=== PATIENT | male | born 1945 | race Caucasian/White ===

== ENCOUNTER 2016-09-05 13:36 | Inpatient (IN) | payer OTHER, MEDICARE ==
[~2016-09-05] VITALS: Ht 188 cm; Wt 113.9 kg
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
--- NOTE | ~2016-09-05 | EKG ---
[address] [address] ELECTROCARDIOGRAM REPORT Name: MJ ESCOBEDO Room #: 312- ADM IN M.R.#: [id number] Admission: 09/05/16 Attend Phys: Kirby Goldman MD Discharge: Date of : 47 Report #: [id number] THIS REPORT FOR: //name// [facility] Test Date: 2016-09-05 Test Time: 17:50:45 Pat Name: MJ ESCOBEDO Department: Room: 312 P Gender: M [employer]: JOHN PAUL : 1945 Requested By: Miller Berry Order Number: [id number] MD: Simon Bella Measurements Intervals [place] Rate: 80 P: [place]: QRS: -7 QRSD: 106 T: 6 QT: 410 QTc: 473 Interpretive Statements Atrial fibrillation Abnormal R-wave progression, late transition Electronically Signed On 09-07-2016 9:48:09 CDT by Simon Bella [email or web address] <ELECTRONICALLY SIGNED> By: Simon Bella MD 09/07/16 0948 1750 1750 MD DELILAH Bell
--- NOTE | ~2016-09-05 | CNG ---
[facility] [place] [address] CYTO-NONGYN REPORT PROCEDURE Name: ELIGIO ESCOBEDO Room #: 312-P [facility] IN M.R.#: [id number] Admission: 09/05/16 Date of : 49 Discharge: 09/10/16 Report #: [id number] Path Case #: [id number] CYTOPATHOLOGY REPORT COLLECTION DATE: 09/09/2016 RECEIVED DATE: 09/09/2016 SUBMITTING PHYS: Dr. Ignacia Nugent OTHER PHYS: Dr. Kirby Berry CLINICAL HISTORY: Hydrocephalus; Dementia, tremors,progressive weakness,cognitive decline SPECIMEN(S) RECEIVED: A.Cerebrospinal fluid * * * * * * * * * * * * FINAL DIAGNOSIS: A. Cerebrospinal fluid: - No malignant cells identified. Few scattered lymphocytes are identified. No viral inclusions or parasitic organisms identified. PATHOLOGIST: Brina Miller M.D. REPORT ELECTRONICALLY SIGNED BY: Brina Miller M.D. DATE/TIME: 09/12/2016 14:21 * * * * * * * * * * * * GROSS PATHOLOGY: A. Cerebrospinal fluid: The specimen is submitted unfixed, labeled "Eligio Escobedo". Received by the Cytology Department is three mL of clear colorless fluid. One ThinPrep slide was prepared. (mm 09.09.2016) UTILIZATION MANAGEMENT RN(S): PAIGE Giraldo([facility] INITIAL CPT CODE(S): A; 67514 Professional services performed by [facility] at [facility] [address], [place] [address] Technical services performed by [facility] at [address] [place] [address], [address], [place] [address]. [facility] [address] [place] [address] CYTO-NONGYN REPORT PROCEDURE Name: ELIGIO ESCOBEDO Room #: 312-P [facility] IN M.R.#: [id number] Admission: 09/05/16 Date of : 49 Discharge: 09/10/16 Report #: [id number] Path Case #: [id number] [place] [address] PHONE: [phone] DIRECTOR: Roberto Galindo M.D. * * * END OF REPORT * * *
[~2016-09-05 13:36] MED LIST: APAP650 PO; ASA81BEC PO; DIOVAN160 MG PO; FENTANYL PA25 MCG/HR TP; HYDROCODON-ACE1 EAC5 PO; HYDROCODON-ACE1 EACH PO; HYDROCODONE-AP1 EAC6 PO; JANTOVEN7.5 MG PO; LASIX 40 MG TAB40 M1 PO; LEVOTHYROXINE0.05 MG PO; LITHIUM CARBON450 MG PO; LOTENSIN40 MG PO; NORVASC10 MG PO; POTASSIUM GLUC500 MG PO; PRAVACHOL 20 MG20 M1 PO; TAMSULOSIN HCL0.4 M1 PO; TOPROL XL100 MG PO; VOLTAREN GEL 1100 G1 TOP
[2016-09-05 14:15] VITALS: BP 129/67
[2016-09-05] MEDS ORDERED: BENAZEPRIL HCL20 MG PO (14:22)
[2016-09-05] MEDS ORDERED: XARELTO15 MG PO (14:24)
[2016-09-05] MEDS ORDERED: LOPRESSOR100 M1 PO (14:25)
[2016-09-05] MEDS ORDERED: ESKALITH CR450 MG PO (14:26)
[2016-09-05 18:38] LABS: HEMATOCRIT 30.1 % (42.0-52.0); HEMOGLOBIN 9.7 gm/dL (14.0-18.0); MCH 24.9 pg (26.0-34.0); MCV 77.8 fL (80.0-100.0); PLATELET COUNT 159 thou/uL (150-400); RBC 3.87 mil/uL (4.50-6.00); RDW 18.5 % (10.5-14.5); WBC 3.3 thou/uL (4.0-11.0)
[2016-09-05 18:47] LABS: MANUAL DIFF YES
[2016-09-05 18:56] LABS: CALCIUM 9.2 mg/dL (8.5-10.1); CREATININE 1.4 mg/dL (0.7-1.3); POTASSIUM 3.7 mmol/L (3.5-5.1); TOTAL BILIRUBIN 0.5 mg/dL (<0.1-1.0); TOTAL PROTEIN 6.5 g/dL (6.4-8.2)
[2016-09-05 19:04] LABS: ABSOLUTE NEUTROPHILS 1.9 thou/uL (1.4-8.2); PLATELET ESTIMATE NORMAL; TOTAL CELL COUNT 100
[2016-09-05 19:05] LABS: ANISOCYTOSIS 1+; HYPOCHROMASIA 1+; MICROCYTES 1+
[2016-09-05 20:00] VITALS: BP 128/86
[2016-09-06] VITALS: BP 119/80
[2016-09-06 04:00] VITALS: BP 150/78
[2016-09-06 08:25] VITALS: BP 107/58
[2016-09-06 12:19] LABS: URINE BILIRUBIN NEGATIVE (Negative); URINE BLOOD TRACE (Negative); URINE COLOR YELLOW; URINE GLUCOSE-RANDOM* NEGATIVE (Negative); URINE KETONES NEGATIVE (Negative); URINE LEUKOCYTES-REFLEX NEGATIVE (Negative); URINE PROTEIN (DIPSTICK) NEGATIVE (Negative); URINE SPECIFIC GRAVITY <= 1.005 (1.003-1.035); URINE UROBILINOGEN 0.2 E.U./dl (0.2-1.0)
[2016-09-06 16:16] VITALS: BP 104/46
[2016-09-06 20:00] VITALS: BP 126/72
[2016-09-07 04:00] VITALS: BP 135/59
[2016-09-07 05:36] LABS: CALCIUM 9.3 mg/dL (8.5-10.1); CREATININE 1.5 mg/dL (0.7-1.3); POTASSIUM 4.1 mmol/L (3.5-5.1)
[2016-09-07 07:40] VITALS: BP 103/62
[2016-09-07 17:14] VITALS: BP 122/70
[2016-09-07 20:00] VITALS: BP 113/66
[2016-09-08 03:55] VITALS: BP 112/70
[2016-09-08 08:22] VITALS: BP 124/65
[2016-09-08 16:09] VITALS: BP 114/64
[2016-09-08 19:37] VITALS: BP 122/70
[2016-09-09 03:55] VITALS: BP 130/80
[2016-09-09 06:02] LABS: CALCIUM 8.9 mg/dL (8.5-10.1); CREATININE 1.3 mg/dL (0.7-1.3); POTASSIUM 4.2 mmol/L (3.5-5.1)
[2016-09-09 08:25] LABS: INR 1.1; PROTIME 11.2 Seconds (9.3-11.4)
[2016-09-09 08:42] VITALS: BP 114/68
[2016-09-09] MEDS ORDERED: CARBIDOPA-LEVO1 EA11 PO (10:15)
[2016-09-09] MEDS ORDERED: OXCARBAZEPINE300 M1 PO (10:15)
[2016-09-09 14:55] LABS: CSF GLUCOSE 61 mg/dL (40-70); CSF PROTEIN 61 mg/dL (15-45)
[2016-09-09 15:02] LABS: CSF CLARITY CLEAR; CSF COLOR COLORLESS; CSF WBC 2 /mm3 (0-10); MANUAL DIFF NO; NUMBER OF TUBES 4; VOLUME 13 ml
[2016-09-09 15:33] VITALS: BP 102/71
[2016-09-09 20:55] VITALS: BP 138/74
[2016-09-10 03:05] VITALS: BP 131/75
[2016-09-10 09:16] VITALS: BP 124/73
[2016-09-12 16:12] LABS: CSF IgG 5.1 mg/dL (0.0-8.6); MYELIN BASIC PROTEIN 5.3 ng/mL (0.0-1.2)
== END 2016-09-10 13:50 | DRG 917 ==
LOC: 3N 13:36
PROVIDERS: Internal Medicine; Internal Medicine Geriatric Medicine; Psychiatry & Neurology Neurology
PROC: 009U3ZX Drainage of Spinal Canal, Percutaneous Approach, Diagnostic (ICD-10-PCS; principal; 2016-09-09)
PROC: B01B1ZZ Fluoroscopy of Spinal Cord using Low Osmolar Contrast (ICD-10-PCS; principal; 2016-09-09)
DX: T56.891A Toxic effect of other metals, accidental (unintentional), initial encounter (principal); G92 Toxic encephalopathy; E44.1 Mild protein-calorie malnutrition; R32 Unspecified urinary incontinence; R25.1 Tremor, unspecified; G47.33 Obstructive sleep apnea (adult) (pediatric); E03.9 Hypothyroidism, unspecified; I10 Essential (primary) hypertension; Z96.649 Presence of unspecified artificial hip joint; Z96.659 Presence of unspecified artificial knee joint; R91.1 Solitary pulmonary nodule; L92.9 Granulomatous disorder of the skin and subcutaneous tissue, unspecified; I48.0 Paroxysmal atrial fibrillation; D72.819 Decreased white blood cell count, unspecified; D64.9 Anemia, unspecified; F32.9 Major depressive disorder, single episode, unspecified; F39 Unspecified mood [affective] disorder; Z68.32 Body mass index [BMI] 32.0-32.9, adult; Z87.891 Personal history of nicotine dependence; Z79.899 Other long term (current) drug therapy
CPT/HCPCS: 10795

== ENCOUNTER → 2016-12-23 | Outpatient (CLI) | payer OTHER, MEDICARE ==
[~2016-12-23] MED LIST changes: +BENAZEPRIL HCL20 MG PO; +CARBIDOPA-LEVO1 EA11 PO; +ESKALITH CR450 MG PO; +LOPRESSOR100 M1 PO; +OXCARBAZEPINE300 M1 PO; +XARELTO15 MG PO
== END ==
LOC: RAD 08:36
DX: R13.10 Dysphagia, unspecified (principal)

== ENCOUNTER → 2017-06-30 | Outpatient (CLI) | payer OTHER, MEDICARE | LOC: CAT 10:38 | DX: J32.9 Chronic sinusitis, unspecified (principal) ==

== ENCOUNTER → 2018-11-12 | Outpatient (CLI) | payer OTHER, MEDICARE | LOC: RAD 13:33 | DX: M47.812 Spondylosis without myelopathy or radiculopathy, cervical region (principal); M48.02 Spinal stenosis, cervical region; M25.78 Osteophyte, vertebrae; G89.29 Other chronic pain ==

== ENCOUNTER → 2018-12-12 | Outpatient (CLI) | payer OTHER, MEDICARE ==
[~2018-12-12] VITALS: Ht 182.9 cm; Wt 118.4 kg
[~2018-12-12] MED LIST changes: +FLOMAX0.4 MG PO; +FLOVENT HFA12 GM INH; +IPRAT-ALBUT 0.5-3 ML INH; +MELATONIN5 M1 PO; +OCUVITE ADULT1 EAC2 PO; +OXYBUTYNIN 5 MG5 M2 PO; +POTASSIUM CITR10 ME1 PO; +SINGULAIR 10 MG10 M1 PO; +STOOL SOFTENER100 M1 PO; +SYNTHROID50 MCG PO; +TURMERIC500 M2 PO; +VITAMIN B-12500 MCG PO; +VITAMINC500 PO
--- NOTE | 2018-12-13 07:25 | EKG ---
[address] [address] ELECTROCARDIOGRAM REPORT Name: MJ ESCOBEDO Room #: REG [facility]#: [id number] Admission: 12/12/18 Attend Phys: Meek Garcia Discharge: Date of : 47 Report #: [id number] THIS REPORT FOR: //name// [facility] Test Date: 2018-12-12 Test Time: 10:34:33 Pat Name: MJ ESCOBEDO Department: Room: Gender: M Shelver: JOHN PAUL : 1945 Requested By: Julinane Cormier Order Number: [id number] MD: Barry Rosales Measurements Intervals [place] Rate: 96 P: [place]: QRS: -12 QRSD: 96 T: 0 QT: 355 QTc: 449 Interpretive Statements Atrial fibrillation Ventricular premature complex Poor R wave progression Compared to ECG 09/05/2016 17:50:45 Ventricular premature complex(es) now present Electronically Signed On 12-13-2018 7:25:30 CDT by Barry Rosales [email or web address] <ELECTRONICALLY SIGNED> By: Barry Rosales MD, [facility] 12/13/18 0725 1034 1034 Barry Rosales MD, [facility] /EPI
--- NOTE | 2018-12-14 09:07 | PATH ---
[facility] [place] [address] PATHOLOGY RPT PROCEDURE Name: ELIGIO ESCOBEDO [id number] Admission: 12/12/18 Date of : 49 Discharge: Report #: [id number] Path Case #: [id number] [facility] Accession Number: [id number] . 01 Material submitted: . PART A: duodenum - BX OF DUODENUM R/O SPRUE PART B: esophagus - BX OF DISTAL ESOPHAGUS R/O BARRETTS. Modifiers: distal PART C: stomach - BX OF GASTRITIS PART D: colon - BX OF POLYP AT SIGMOID. Modifiers: sigmoid . 01 Clinical history: . Pre-OP DX: Anemia Post-OP DX: Hiatal hernia, gastritis, diverticulosis, colon polyps, please refer to requisition for additional information . 02 Diagnosis: A. Duodenum, biopsy: - Duodenal mucosa with intact villous architecture and no increase in intraepithelial lymphocytes. . B. Esophagus, distal, biopsy: - Squamocolumnar junctional mucosa; chronically inflamed. - Negative for intestinal metaplasia. . C. Gastric, biopsy: - Mild chronic inactive gastritis. - An H. pylori immunostain is negative (C1; appropriate control). . D. Colon, sigmoid, biopsy: - Hyperplastic polyp. (MAP/db; 12/13/18) LBQ/12/13/2018 . 02 Electronically signed: . Juan Miguel Pace MD, Pathologist NPI- [id number] . 01 Gross description: . A. Received in formalin labeled "Eligio Escobedo, BX of duodenum, rule out sprue," are 4 segments of trammell soft tissue measuring 0.9 x 0.8 x 0.3 cm in aggregate dimensions and ranging from 0.3 to 0.4 cm in maximum dimension. The specimen is submitted entirely in cassette A1. . B. Received in formalin labeled "Eligio Escobedo, BX of distal esophagus, rule out Peralta's," are 2 segments of trammell soft tissue measuring 0.7 x 0.2 x 0.2 cm in aggregate dimensions and ranging from 0.3 to 0.4 cm in maximum dimension. The specimen is submitted entirely in cassette B1. [facility] [address] [place] [address] PATHOLOGY RPT PROCEDURE Name: ELIGIO ESCOBEDO Room #: REG [facility]#: [id number] Admission: 12/12/18 Date of : 49 Discharge: Report #: [id number] Path Case #: [id number] . C. Received in formalin labeled "Eligio Escobedo, BX of gastritis," are 2 segments of trammell soft tissue measuring 1.0 x 0.3 x 0.2 cm in aggregate dimensions and ranging from 0.3 to 0.7 cm in maximum dimension. The specimen is submitted entirely in cassette C1. . D. Received in formalin labeled "Eligio Escobedo, BX of polyp at sigmoid," is a single segment of trammell soft tissue measuring 0.3 cm in maximum dimension. The specimen is entirely submitted in cassette D1. (TSD; 12/12/2018) TOB/TOB . 02 Pathologist provided ICD-10: K29.50, K63.5 . 02 CPT . 565634, 245542, 394210, 073502, F09144 Specimen Comment: A courtesy copy of this report has been sent to Specimen Comment: [phone], . Specimen Comment: Report sent to / DR HANKS Performed at: [address], [place] [id number] MD Jatinder Thao MD Phone: [phone] Performed at: [address] [id number] MD Brina Miller MD Phone: [phone]
--- NOTE | 2018-12-15 12:43 | P ---
[facility] [address] PROCEDURE REPORT Name: GREGGMJ [id number] Admission: 12/12/18 Attend Phys: Meek Garcia Discharge: Date of : 49 Report #: [id number] THIS REPORT FOR: //name// CC: RHYS Berry DATE OF SERVICE: 12/12/2018 PROCEDURE PERFORMED: Colonoscopy with biopsies. HISTORY OF PRESENT ILLNESS: The patient is a 73-year-old male with a history of anemia, most recent hemoglobin in the 8 range. He does report a small amount of bright red blood per rectum at times. Denies any abdominal pain. Upper endoscopy was just performed, which showed grade A erosive esophagitis and a mild gastritis. No evidence of active bleeding. Plan is for colonoscopy next today. DESCRIPTION OF PROCEDURE: The risks and benefits of the procedure were explained to the patient. Those risks including but not limited to bleeding, perforation, the risk of sedation. He understood these risks and gave informed consent. Sedation was given using propofol per anesthesia. Next, a digital rectal exam was initially performed, which was normal. Next using a standard Olympus colonoscope, the scope was placed in the patient's anus and advanced under direct vision to the cecum. The overall prep was good. The cecum and ileocecal valve were normal in appearance. Ascending, transverse and descending colon were normal. A few scattered diverticula were noted in the sigmoid colon. No evidence of inflammation. Also noted was a 3 mm sessile polyp. This was removed with cold forceps. The rectal mucosa was normal. On retroflexion, small nonbleeding internal hemorrhoids were noted. No evidence of anal fissure or active bleeding. The scope was then withdrawn and the procedure terminated. The patient tolerated the procedure well. IMPRESSION: 1. Mild sigmoid diverticulosis. 2. Small colonic polyp. 3. Small internal hemorrhoids, likely source of bright red blood per rectum at times. RECOMMENDATIONS: 1. Await biopsy results. 2. If polyp is hyperplastic, repeat in 10 years; if adenomatous polyp, repeat in 5 years. 3. We would recommend Analpram on a p.r.n. basis. Consider M2 capsule in the future if the patient remains anemic. [address] [address] PROCEDURE REPORT Name: MJ ESCOBEDO Room #: REG [facility]#: [id number] Admission: 12/12/18 Attend Phys: Meek Garcia Discharge: Date of : 49 Report #: [id number] Thank you for allowing me to participate in his care. <ELECTRONICALLY SIGNED> By: Meek Matson MD 12/15/18 1243 1233 0355 Meek Matson MD /nt
--- NOTE | 2018-12-15 12:43 | P ---
[facility] [place] [address] PROCEDURE REPORT Name: GREGGMJ Room #: REG [facility]#: [id number] Admission: 12/12/18 Attend Phys: Meek Garcia Discharge: Date of : 49 Report #: [id number] THIS REPORT FOR: //name// CC: RHYS Berry DATE OF SERVICE: 12/12/2018 PROCEDURE PERFORMED: Upper endoscopy with biopsies. HISTORY OF PRESENT ILLNESS: The patient is a 73-year-old male with a history of anemia. He does report some small amount of bright red blood per rectum at times. Hemoglobin was in the 8 range recently with a low iron as well noted. Denies any melanotic stools in general, but he does report dark stools and brown stools at times as well. No previous history of upper endoscopy. We discussed proceeding with an EGD and a colonoscopy today. DESCRIPTION OF PROCEDURE: The risks and benefits of the procedure were explained to the patient. Those risks including but not limited to bleeding, perforation, the risk of sedation. He understood these risks and gave informed consent. Sedation was given using propofol per anesthesia. Next, using a standard Olympus upper endoscope, the scope was placed in the patient's mouth and advanced under direct vision through the esophagus, stomach and into the second portion of the duodenum. The upper and mid esophagus was normal in appearance. 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 Biopsies were obtained. Also noted was grade A erosive esophagitis. No evidence of bleeding. Upon entering the stomach, a small hiatal hernia was noted. There was a umhp-oe-xddziyli gastritis noted in the fundus and upper body. Biopsies were obtained to rule out H. pylori. No evidence of ulcerations or erosions. There was no evidence of bleeding throughout the exam today. The antrum was normal. The pylorus was normal and patent. The duodenal bulb, first and second portion were all normal. Biopsies were also obtained to rule out the possibility of celiac sprue. The scope was then withdrawn and the procedure terminated. The patient tolerated the procedure well. IMPRESSION: 1. Grade A erosive esophagitis. 2. 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 3. Hiatal hernia. 4. Gastritis. RECOMMENDATIONS: 1. Await biopsy results. 2. Recommend daily PPI therapy. 3. We will proceed with colonoscopy next today. [address] [address] PROCEDURE REPORT Name: MJ ESCOBEDO [facility] [id number] Admission: 12/12/18 Attend Phys: Meek Garcia Discharge: Date of : 49 Report #: [id number] Thank you for allowing me to participate in his care. <ELECTRONICALLY SIGNED> By: Meek Matson MD 12/15/18 1243 1214 0222 Meek Matson MD /nikia
== END | disposition home or self-care (01) ==
LOC: GI 09:45
DX: K63.5 Polyp of colon (principal); K57.30 Diverticulosis of large intestine without perforation or abscess without bleeding; K64.8 Other hemorrhoids; K20.9 Esophagitis, unspecified; K29.50 Unspecified chronic gastritis without bleeding; K44.9 Diaphragmatic hernia without obstruction or gangrene; I10 Essential (primary) hypertension; E78.5 Hyperlipidemia, unspecified; G20 Parkinson's disease; J43.9 Emphysema, unspecified; G47.33 Obstructive sleep apnea (adult) (pediatric); M19.90 Unspecified osteoarthritis, unspecified site; I48.91 Unspecified atrial fibrillation; Z79.01 Long term (current) use of anticoagulants; Z98.41 Cataract extraction status, right eye; Z96.651 Presence of right artificial knee joint; Z96.642 Presence of left artificial hip joint; Z87.891 Personal history of nicotine dependence; Z98.42 Cataract extraction status, left eye; Z79.899 Other long term (current) drug therapy
CPT/HCPCS: 62110; 62900

== ENCOUNTER → 2019-10-23 | Outpatient (CLI) | payer OTHER, MEDICARE | LOC: SJCVCIMAG 08:47 | PROVIDERS: ATTEND Internal Medicine | DX: I08.8 Other rheumatic multiple valve diseases (principal); I48.21 Permanent atrial fibrillation; I11.0 Hypertensive heart disease with heart failure; I50.32 Chronic diastolic (congestive) heart failure; R94.31 Abnormal electrocardiogram [ECG] [EKG]; E78.5 Hyperlipidemia, unspecified; G47.33 Obstructive sleep apnea (adult) (pediatric); G20 Parkinson's disease; E78.00 Pure hypercholesterolemia, unspecified; Z79.01 Long term (current) use of anticoagulants; Z79.899 Other long term (current) drug therapy; Z87.891 Personal history of nicotine dependence; Z82.49 Family history of ischemic heart disease and other diseases of the circulatory system ==

== ENCOUNTER 2020-01-23 10:06 | Inpatient (IN) | payer OTHER, MEDICARE ==
[2020-01-23] VITALS (34 sets, daily range): BP systolic 92–126; BP diastolic 44–79
[~2020-01-23] VITALS: Ht 182.9 cm; Wt 125.6 kg
--- NOTE | ~2020-01-23 | EKG ---
[facility] [place] [address] ELECTROCARDIOGRAM REPORT Name: GREGGMJ Coates Room #: 238-P ADM IN M.R.#: [id number] Admission: 01/23/20 Attend Phys: Pedro Garibay MD Discharge: Date of : 49 Report #: [id number] THIS REPORT FOR: cc: Miller Berry MD, Christopher B. MD Epiphany, Epiphany MD ~ THIS REPORT FOR: //name// [facility] Test Date: 2020-01-25 Test Time: 07:40:51 Pat Name: MJ ESCOBEDO Department: Room: 238 Gender: M Field Control Inspector: Shiela GE : 1945 Requested By: Barry Rosales Order Number: [id number] MD: Measurements Intervals [place] Rate: 125 P: [place]: QRS: 12 QRSD: 91 T: -7 QT: 338 QTc: 488 Interpretive Statements Atrial fibrillation Low voltage, precordial leads Borderline T abnormalities, inferior leads Borderline prolonged QT interval Compared to ECG 01/24/2020 07:23:43 Low QRS voltage now present T-wave abnormality now present Myocardial infarct finding no longer present [email or web address] By: 9 9 Epiphany Epiphany, /RUTHANN
--- NOTE | ~2020-01-23 | O ---
[facility] [place] [address] OPERATIVE REPORT Name: MJ ESCOBEDO Room #: 238-P ADM IN M.R.#: [id number] Admission: 01/23/20 Attend Phys: Pedro Garibay MD Discharge: Date of : 49 Report #: [id number] THIS REPORT FOR: cc: Miller Berry MD,Leon Talavera MD, MD ~ CC: Miller Garibay DATE OF SERVICE: 01/25/2020 PREOPERATIVE DIAGNOSIS: Acute cholecystitis. POSTOPERATIVE DIAGNOSES: Acute gangrenous cholecystitis with abscess. OPERATION: Diagnostic laparoscopy with drainage of hepatic abscess and placement of cholecystostomy. SURGEON: Leon Brito MD. ANESTHESIA: General. ESTIMATED BLOOD LOSS: 20 mL. SPECIMEN: None. DRAINS: A 15-Eritrean round x 2. DESCRIPTION OF PROCEDURE: After informed consent was obtained, the patient was brought to the operating room and placed supine. SCDs were placed and working, preoperative antibiotics were administered, general anesthesia was induced. The abdomen was prepped and draped in the usual sterile fashion. A 10 mm incision was made below the umbilicus. Fascia was incised and a trocar was placed. Pneumoperitoneum was established. Three right upper quadrant 5 mm ports were placed. The gallbladder was severely inflamed and necrotic. It had gangrene. The omentum was plastered to it. This was peeled away. During this dissection, the gallbladder was encountered. It was already ruptured. There was pus draining from the gallbladder. There was a hepatic abscess corresponding with the CT findings. All of this pus was then drained using a suction device. The gallbladder was gangrenous. Given the severe inflammation and the colon stuck up to the triangle of Calot and the patient's blood thinner use, I did not think it would be safe to perform a dissection or [facility] [address] [place] [address] OPERATIVE REPORT Name: GREGGMJ Room #: 238-P [facility]#: [id number] Admission: 01/23/20 Attend Phys: Pedro Garibay MD Discharge: Date of : 49 Report #: [id number] an open procedure. I therefore placed two 15-Eritrean round drains through the right upper quadrant ports. One was placed into the gallbladder fossa and one was placed around the liver to drain the rest of the infection. The ports were then removed under direct vision. The fascia at the umbilicus was closed with a eaukby-fc-jcnsg 0 Vicryl. Skin was closed with 4-0 Monocryl. Incisions were sealed with Dermabond. COMPLICATIONS: None. DISPOSITION: The patient was taken to recovery in satisfactory condition. By: 1103 1129 Leon Brito MD /nt
[2020-01-23 10:40] LABS: HEMATOCRIT 28.9 % (42.0-52.0); MCH 25.8 pg (26.0-34.0); MCV 83.2 fL (80.0-100.0); PLATELET COUNT 209 thou/uL (150-400); RBC 3.48 mil/uL (4.50-6.00); RDW 17.3 % (10.5-14.5); WBC 23.9 thou/uL (4.0-11.0)
[2020-01-23 10:46] LABS: ANION GAP 12 mmol/L (7-16); BUN 27 mg/dL (7-18); CALCIUM 8.9 mg/dL (8.5-10.1); CHLORIDE 100 mmol/L (98-107); CO2 22 mmol/L (21-32); CREATININE 2.1 mg/dL (0.7-1.3); GLUCOSE 114 mg/dL (74-106); POTASSIUM 3.5 mmol/L (3.5-5.1); SODIUM 134 mmol/L (136-145)
[2020-01-23 10:57] LABS: ALBUMIN 2.1 g/dL (3.4-5.0); SGOT 47 U/L (15-37); SGPT 27 U/L (30-65); TOTAL BILIRUBIN 4.6 mg/dL (0.2-1.0); TOTAL PROTEIN 6.6 g/dL (6.4-8.2); TROPONIN-I <0.06 ng/mL (<0.06)
[2020-01-23 11:39] LABS: ABSOLUTE NEUTROPHILS 19.8 thou/uL (1.4-8.2); ANISOCYTOSIS 1+; ATYPICAL LYMPHS 2 %
[2020-01-23 13:08] LABS: URINE BILIRUBIN 2+ (Negative); URINE BLOOD NEGATIVE (Negative); URINE CLARITY CLOUDY; URINE GLUCOSE-RANDOM* NEGATIVE (Negative); URINE KETONES TRACE (Negative); URINE LEUKOCYTES-REFLEX TRACE (Negative); URINE PROTEIN (DIPSTICK) 1+ (Negative); URINE SPECIFIC GRAVITY 1.025 (1.005-1.035)
[2020-01-23 13:09] LABS: URINE NITRITE-REFLEX POSITIVE (Negative)
[2020-01-23 13:10] LABS: URINE COLOR YELLOW
[2020-01-23 13:12] LABS: ICTOTEST (BILI CONFIRMATORY) Positive (Negative)
[2020-01-23 13:24] LABS: CRYSTALS None Seen /LPF (None Seen); FINE GRANULAR CASTS 0-3 Few /LPF (None Seen); HYALINE CASTS 0-3 Few /LPF (None Seen); SQUAMOUS None Seen /LPF (0-3)
[2020-01-23 13:25] LABS: URINE RBC None Seen /HPF (0-2); URINE WBC-REFLEX 6-15 Few /HPF (0-5)
[2020-01-23] MEDS ORDERED: CARBIDOPA-LEVO1 EAC1 PO ×2 (13:39→13:40)
[2020-01-23] MEDS ORDERED: XARELTO15 MG PO (13:43)
[2020-01-23] MEDS ORDERED: PRILOSEC OTC20 MG PO (13:43)
[2020-01-23] MEDS ORDERED: STOOL SOFTENER1 EAC2 PO (13:44)
[2020-01-23] MEDS ORDERED: VITAMIN C1000 MG PO (13:44)
[2020-01-23] MEDS ORDERED: IRON325 M1 PO (13:45)
[2020-01-23] MEDS ORDERED: ZINC50 M2 PO (13:46)
[2020-01-23] MEDS ORDERED: OCUVITE TABLET1 EAC1 PO (13:49)
[2020-01-23] MEDS ORDERED: POTASSIUM600 MG PO (13:49)
--- NOTE | 2020-01-23 13:55 | EKG ---
[facility] [place] [address] ELECTROCARDIOGRAM REPORT Name: KEI ESCOBEDOROSCOE Aminata Room #: 170-6 ADM IN M.R.#: [id number] Admission: 01/23/20 Attend Phys: Pedro Garibay MD Discharge: Date of : 49 Report #: [id number] THIS REPORT FOR: cc: Miller Berry MD, Christopher B. MD Santiago, Patrick MD [facility] ~ THIS REPORT FOR: //name// [facility] ED Test Date: 2020-01-23 Test Time: 10:15:51 Pat Name: MJ ESCOBEDO Department: Room: 170 Gender: M Booth Manager: WALTER SUNG : 1945 Requested By: Cj Hahn Order Number: [id number] MD: Paras Capellan Measurements Intervals [place] Rate: 163 P: [place]: QRS: 33 QRSD: 92 T: -6 QT: 300 QTc: 495 Interpretive Statements Atrial fibrillation with rapid V-rate Inferior infarct, old Consider anterior infarct Compared to ECG 12/12/2018 10:34:33 Ventricular premature complex(es) no longer present Poor R-wave progression no longer present Electronically Signed On 01-23-2020 13:54:56 CDT by Paras Capellan [email or web address] <ELECTRONICALLY SIGNED> By: Paras Capellan MD, [facility] 01/23/20 1354 1015 1015 Paras Capellan MD, [facility] /EPI
--- NOTE | 2020-01-23 13:56 | NUR ---
ATTEMPTED TO CALL REPORT TO ICU. UNABLE TO TAKE REPORT AND WILL CALL BACK
--- NOTE | 2020-01-23 14:31 | NUR ---
Attempted to call report to ICU nurse at this time. Unable to take report.
--- NOTE | 2020-01-23 17:41 | NUR ---
PATIENT IN ICU AT 1555, ALERT AND ORIENTED BUT FORGETFUL STATING HE HAS SHORT TERM MEMORY LOSS. ON LEVO AND TITRATING BP TOLERATES, A-FIB ON THE MONITOR WITH A CONTROLLED RATE. ADMISSION ASSESSMENT AND HISTORY DOCUMENTED IN [place]. CARE PLAN ACTIVATED AND PATIENT ORIENTED TO CALL SYSTEM AND TV REMOTE CONTROL. FALL PRECAUTIONS IN PLACE. ALL CONSULTS NOTED.
--- NOTE | 2020-01-23 20:26 | NUR ---
2023- Nurse talked with Dr. Matson and updated him on patient status and answered his questions. Nurse reviewed his cat scan and ultrasound results with the physician. Physician expressed will note his recommendations. Also expressed may consult Dr. Berry tomorrow. Nurse to continue to monitor patient status.
--- NOTE | 2020-01-23 21:43 | NUR ---
2037- Nurse talked with Dr. Brito, who expressed he is going to come see the patient.
[2020-01-24] VITALS (57 sets, daily range): BP systolic 90–138; BP diastolic 28–94
--- NOTE | 2020-01-24 06:18 | NUR ---
Patients plan is for surgery today, per Dr. Brito. Physician spoke with patient last night. The patient would like to have a video conference with his before deciding to do the surgery today. He is progressing towards plan of care as evidenced by levophed gtt off, bath able to be given for surgery today, and he is hard of hearing, but oriented. Nurse to continue to monitor patient status.
--- NOTE | 2020-01-24 06:54 | NUR ---
0654- Nurse talked with Romy, patients , and updated her on plan of care for richard, patient status, and labs/tests. She expressed that patient recently had an MRI of his prostate with Dr. Zuluaga and is waiting results.
--- NOTE | 2020-01-24 07:45 | EKG ---
[facility] [place] [address] ELECTROCARDIOGRAM REPORT Name: KEI ESCOBEDOROSCOE Aminata Room #: 238-P ADM IN M.R.#: [id number] Admission: 01/23/20 Attend Phys: Pedro Garibay MD Discharge: Date of : 49 Report #: [id number] THIS REPORT FOR: cc: Miller Berry MD, Christopher B. MD Santiago, Patrick MD [facility] ~ THIS REPORT FOR: //name// [facility] Test Date: 2020-01-24 Test Time: 07:23:43 Pat Name: MJ ESCOBEDO Department: Room: 238 Gender: M Guide Visitor: MERT : 1945 Requested By: Barry Rosales Order Number: [id number] MD: Paras Capellan Measurements Intervals [place] Rate: 127 P: [place]: QRS: 32 QRSD: 94 T: -12 QT: 335 QTc: 488 Interpretive Statements Atrial fibrillation Inferior infarct, age indeterminate Compared to ECG 01/23/2020 10:15:51 No significant changes Electronically Signed On 01-24-2020 7:45:35 CDT by Paras Capellan [email or web address] <ELECTRONICALLY SIGNED> By: Paras Capellan MD, FAC 01/24/20 0745 2 2 Paras Capellan MD, [facility] /EPI
[2020-01-24 07:51] LABS: HEMATOCRIT 25.9 % (42.0-52.0); HEMOGLOBIN 8.2 gm/dL (14.0-18.0); MCH 26.5 pg (26.0-34.0); MCHC 31.8 g/dL (28.0-37.0); MCV 83.4 fL (80.0-100.0); RBC 3.11 mil/uL (4.50-6.00); RDW 17.3 % (10.5-14.5); WBC 16.7 thou/uL (4.0-11.0)
[2020-01-24 08:03] LABS: ALBUMIN 1.9 g/dL (3.4-5.0); CALCIUM 8.6 mg/dL (8.5-10.1); CREATININE 2.1 mg/dL (0.7-1.3); POTASSIUM 3.8 mmol/L (3.5-5.1); TOTAL BILIRUBIN 5.8 mg/dL (0.2-1.0); TOTAL PROTEIN 6.2 g/dL (6.4-8.2)
--- NOTE | 2020-01-24 09:07 | NUR ---
Admit to ICU with lactic acidosis, ENOC, afib. Elevated LFT, acute cholecystitis and plans for surgical intervention today. Wts stable since 2017. Physician has indicated severe protein calorie malnutrition: RD will defer. Follow for timely diet advance, otherwise low nutrition risk.
--- NOTE | 2020-01-24 13:33 | NUR ---
chart review. pt irlanda of possible lab chol today. unable to visit with clement. cm called and spoke with hayley via phone call, she reported live in house, he can be alone for few hr at home. independent when feeling ok. 3 steps to 3 enter. have cane, walker, bipap, shower chair, grab bars, stool rise . [facility]. had [facility] in past. will do what is recommended, but 1st choice would be to go home at dc per hayley. will cont following as needed for dc needs.
--- NOTE | 2020-01-24 17:02 | NUR ---
DR. MIRANDA ROUNDED THIS AM AND DECIDED TO CANCEL SCHEDULED SURGERY FOR LAP JARRELL, ORDERED MRCP. DR. MIRANDA SPOKE WITH AND UPDATED ON NEW PLAN OF CARE. MRCP DONE, RESULTS COMMUNICATED TO GI AND SURGERY. PLAN FOR SURGERY TOMORROW 01/24. COMMUNICATED THIS WITH AND PATIENT. AFTER MRCP PATIENT WITH PERSISTENT ELEVATED HEART RATE, ATTEMPTED TO PAGE CARGIOLOGY (DR. POSADA) TWICE WITH NO RETURN CALL BACK. COMMUNICATED THIS TO DR. HARPER. PATIENT WAS GIVEN A 10MG BOLUS OF CARDIZEM AND STARTED ON CARDIZEM GTT. MONITORING BLOOD PRESSURES.
[2020-01-25] VITALS (60 sets, daily range): BP systolic 92–164; BP diastolic 58–105
[2020-01-25 04:23] LABS: ALBUMIN 1.8 g/dL (3.4-5.0); CALCIUM 8.8 mg/dL (8.5-10.1); CREATININE 1.6 mg/dL (0.7-1.3); POTASSIUM 3.9 mmol/L (3.5-5.1); TOTAL BILIRUBIN 2.4 mg/dL (0.2-1.0); TOTAL PROTEIN 6.5 g/dL (6.4-8.2)
--- NOTE | 2020-01-25 06:30 | NUR ---
Pt A/O X3 with confusion and forgetfulness at times. Slept on/off overnight educated on scheduled surgery this AM, NPO since Alea LYNN gtt stopped last night @ 2100 but restarted at 0315 to maintain HR less than 100.
--- NOTE | 2020-01-25 09:01 | NUR ---
0827 PATIENT TRANSFERRING TO SURGERY. VITAL SIGNS STABLE, CONTINUES IN AFIB RVR ON CARDIZEM DRIP.
--- NOTE | 2020-01-25 18:16 | NUR ---
SPOKE WITH DR AHRPER AT THE END OF THE SHIFTREQUESTIONG THAT HE CHANGE THE PATIENTS BREATHING TREATMENTS TO XOPENEX SINCE HE WAS HAVING SOME RATE ISSUES TODAY. STATED HE WILL MAKE THE CHANGE.
[2020-01-26] VITALS (20 sets, daily range): BP systolic 89–136; BP diastolic 49–86
--- NOTE | 2020-01-26 08:50 | NUR ---
0800 DR MIRANDA AT BEDSIDE, STATES PATIENT CAN TRANSFER OUT OF ICU IF OKAY WITH HOSPITALIST. 0832 DR GIVENS AT BEDSIDE PATIENT AWAKE AND ALERT THIS MORNING. OFF OF CARDIZEM.
[2020-01-26 11:46] LABS: ALBUMIN 2.2 g/dL (3.4-5.0); CALCIUM 8.5 mg/dL (8.5-10.1); CREATININE 1.3 mg/dL (0.7-1.3); TOTAL BILIRUBIN 1.5 mg/dL (0.2-1.0); TOTAL PROTEIN 6.6 g/dL (6.4-8.2)
[2020-01-26 12:58] LABS: HEMATOCRIT 27.5 % (42.0-52.0); HEMOGLOBIN 8.5 gm/dL (14.0-18.0); MCH 26.2 pg (26.0-34.0); MCHC 30.9 g/dL (28.0-37.0); MCV 84.7 fL (80.0-100.0); RBC 3.25 mil/uL (4.50-6.00)
[2020-01-27] VITALS (11 sets, daily range): BP systolic 94–142; BP diastolic 60–81
[2020-01-27 03:59] LABS: HEMATOCRIT 27.1 % (42.0-52.0); HEMOGLOBIN 8.5 gm/dL (14.0-18.0); MCH 26.6 pg (26.0-34.0); MCHC 31.4 g/dL (28.0-37.0); MCV 84.6 fL (80.0-100.0); PLATELET COUNT 180 thou/uL (150-400); WBC 8.8 thou/uL (4.0-11.0)
[2020-01-27 04:57] LABS: ANION GAP 16 mmol/L (7-16); BUN 26 mg/dL (7-18); CALCIUM 7.8 mg/dL (8.5-10.1); CHLORIDE 110 mmol/L (98-107); CO2 17 mmol/L (21-32); CREATININE 1.2 mg/dL (0.7-1.3); GLUCOSE 113 mg/dL (74-106); POTASSIUM 4.1 mmol/L (3.5-5.1); SGOT < 5 U/L (15-37); SGPT 9 U/L (30-65); SODIUM 143 mmol/L (136-145); TOTAL PROTEIN 5.5 g/dL (6.4-8.2)
[2020-01-27 05:31] LABS: ALBUMIN 1.8 g/dL (3.4-5.0); MAGNESIUM 2.2 mg/dL (1.8-2.4)
[2020-01-27 09:31] LABS: ABSOLUTE NEUTROPHILS 6.8 thou/uL (1.4-8.2); METAMYELOCYTES 1 %; MYELOCYTES 2 %
[2020-01-27 09:32] LABS: ANISOCYTOSIS 1+
--- NOTE | 2020-01-27 10:22 | NUR ---
PATIENT SITTING UP IN THE CHAIR, VITALS STABLE, ON CARDIZEM GTT FOR HR CONTROL.TOLERATING DIET W/O NAUSEA. UPDATED ON THE PHONE AND ADDED TO DESIGNATED VISITOR TO COME VISIT. PATIENT CCU STATUS.
--- NOTE | 2020-01-27 15:11 | NUR ---
pt cont on iv cardiac gtts. up in chair. advancing diet as tolerated. unable to visit with pt, will cont following as needed for dc needs. will see how he does with therapy. will cont following as needed for dc needs.
--- NOTE | 2020-01-28 07:44 | NUR ---
PT HAD EPISODES OF SLEEP APNEA. WILL CALL FAMILY TO BRING HOME CPAP. 02SAT 78 DURING APNIC PERIOD. MONITOR SHOWS AFIB WITH CONTROLLED RATE. HR DOWN TO 58-CARDIZEM OFF. CONT TO ENCOURAGE C/DB. LESS LAYNE DRAINAGE NOTED. PT PROGRESSING TOWARD GOALS. CONT PLAN OF CARE
[2020-01-28 08:01] VITALS: BP 153/93
[2020-01-28 12:00] VITALS: BP 130/84
--- NOTE | 2020-01-28 14:41 | NUR ---
PATIENT ALERT AND ORIENTED AND HAS DENIED PAIN. VITALS STABLE, IN AFIB AND SOMETIMES WITH ACTIVITY HR UP IN 120s-130s. PATIENT OFF CARDIZEM GTT AND ON P.O. BETA BIENVENIDO. UP TO THE CHAIR WITH STANDBY ASSIST. ASSISTED TO THE COMMODE MULTIPLE TIMES TODAY. TOLERATING DIET W/O NAUSEA. LAYNE DRAINS DOCUMENTED AND LAP SITES NOTED. ORDERS TO TRANSFER OUT OF ICU FOR LAST 2DAYS AND PATIENT WILL BE TRANSFERRED TO RM 219. PATIENT'S SPOUSE AT THE BEDSIDE AND UPDATED BY MDs THEY ROUNDED.
[2020-01-28 15:45] VITALS: BP 130/84
--- NOTE | 2020-01-28 16:03 | NUR ---
REPORT CALLED TO ELOISE RN IN CCU AND PATIENT TRANSFERRED TO RM 219 WITH BELONGINGS AND ACCOMPANIED BY SPOUSE.
--- NOTE | 2020-01-28 19:36 | NUR ---
PT CARE ASSUMED APPROX 1500. ASSESSMENT CHARTED. MEDICATION CHARTED. AFIB. LEJ, LFA, RAC IV'S. TWO LAYNE DRAINS. AO X 4.; PARKINSONS; FORGETFUL.
[2020-01-28 20:17] VITALS: BP 151/88
--- NOTE | 2020-01-29 04:53 | NUR ---
ASSUMED CARE OF PATIENT AT 1900. PATIENT STANDBY ASSIST WITH AMBULATION TO BATHROOM. GAIT STEADY. PATIENT PLACED ON CPAP AT HS. PATIENT DID DESAT BRIEFLY SEVERAL TIMES THROUGH OUT NOC. OXYGEN SATS RECOVERED WITH NO INTERVENTION. SUGGESTED TO PATIENT TO NOT RECLINE COMPLETELY BACK IN CHAIR. PATIENT ALSO HAD AN EPISODE OF DIARRHEA AROUND 0430. PLACED NEW GAUZE AROUND DRAIN SITES OLD GAUZE SATURATED WITH YELLOW DRAINAGE. PATIENT STATES THAT "HE IS GETTING AROUND BETTER" AND IS FEELING BETTER. PATIENT APPEARS TO BE PROGRESSING TOWARDS GOALS.
[2020-01-29 05:47] VITALS: BP 153/86
[2020-01-29 06:57] LABS: ALBUMIN 1.9 g/dL (3.4-5.0); DIRECT BILIRUBIN 0.7 mg/dL (<0.1-0.2); TOTAL PROTEIN 5.5 g/dL (6.4-8.2)
[2020-01-29 07:50] VITALS: BP 165/85
[2020-01-29 12:06] VITALS: BP 149/79
[2020-01-29 15:16] VITALS: BP 141/73
--- NOTE | 2020-01-29 17:42 | NUR ---
ASSESSMENT CHARTED. MEDS PER JUN - NO CO'S OF PAIN OR NAUSEA. JODIE DIET AND FLUIDS. PT WITH DIARRHEA TODAY X 4 - MODERATE AMOUNT. PT UP TO THE BATROOM WITH MIN/STBY ASSIST. LAYNE DRAINS INSITU - DECREASED AMOUNT OF DRAINAGE FROM EACH. ABDO SITE C/D/I. PT TO BE SEEN BY PHYS/OCC THERAPY. INTO VISIT. NO CO'S AT THE PRESENT TIME.
[2020-01-29 19:16] VITALS: BP 149/94
--- NOTE | 2020-01-30 02:23 | NUR ---
ASSUMED CARE OF PATIENT AT 1900. DAY SHIFT NURSE REPORTED ESPISODES OF DIARRHEA X4. OBTAINED ORDER FROM ASSOCIATE SOFTWARE APPLICATION ENGINEER FOR LOPERAMIDE. PATIENT HAS LOOSE PRODUCTIVE COUGH. PATIENT NOTED TO HAVE SOME SOA WITH AMBULATION TO BATHROOM. PATIENT DID START HS OFF WITH CPAP IN PLACE BUT FREQUENTLY REMOVES THROUGH NOC. EDUCATED PATIENT ABOUT IMPORTANCE OF LEAVING CPAP IN PLACE.
[2020-01-30 03:40] VITALS: BP 144/72
[2020-01-30 08:08] VITALS: BP 156/96
[2020-01-30 11:11] VITALS: BP 132/82
--- NOTE | 2020-01-30 14:03 | NUR ---
5N consulted and following. Patient unable to work with therapy this am due to heart rate. Patient resides at home with and 50 year old son. [email or web address] following for dc planning.
[2020-01-30 15:20] VITALS: BP 125/76
--- NOTE | 2020-01-30 17:41 | NUR ---
ASSESSMENT CHARTED - MEDS PER JUN - NO CO'S OF PAIN OR NASUEA. JODIE DIET AND FLUIDS. PT WITH IV SITE CHANGED THIS SHIFT. TO LEFT FOREARM R AC SITE LEAKING. PT SEEN BY PT AND OCC THERAPY THISSHIFT - AMBULATEDIN THE GARG WITH WALKER. OCC THERAPY WILL BE IN TO BATHE PATIENT IN THE AM. ABDO DRESSING C/D/I. NO CO'S AT THE PRESENT TIME. INTO VISIT. STATES COMFORTABLE.
[2020-01-30 20:12] VITALS: BP 142/85
[2020-01-31 03:37] VITALS: BP 134/85
--- NOTE | 2020-01-31 05:45 | NUR ---
ASSUMED CARE AT 1900. PT ALERT AND ORIENTED. VITALS STABLE. AFIB ON THE MONITOR. PT GET TACHY WITH ACTIVITIES. LAYNE DRAINS INTACT. DENIES PAIN. PT SLEPT IN THE CHAIR DURING THE NIGHT. DENIES ANY CHEST DISCOMFORT NAUSEA OR VOMITING. NO ANY ACTIVITIES OVENIGHT. WILL CONTINUE TO FOLLOW POC.
[2020-01-31 08:23] VITALS: BP 138/64
[2020-01-31 10:55] VITALS: BP 115/57
--- NOTE | 2020-01-31 11:46 | NUR ---
Followup: eating 100% of meals. new wt 227 lb ? as pt states usually weighs closer to 250 lb and does not feel has lost that much wt during this hospitalization. Remains low nutrition risk
[2020-01-31 16:21] LABS: HEMATOCRIT 30.6 % (42.0-52.0); HEMOGLOBIN 9.6 gm/dL (14.0-18.0); MCH 26.4 pg (26.0-34.0); MCHC 31.3 g/dL (28.0-37.0); MCV 84.2 fL (80.0-100.0); RBC 3.64 mil/uL (4.50-6.00); RDW 18.8 % (10.5-14.5); WBC 4.2 thou/uL (4.0-11.0)
[2020-01-31 16:29] LABS: CALCIUM 8.2 mg/dL (8.5-10.1); CREATININE 1.4 mg/dL (0.7-1.3); POTASSIUM 4.3 mmol/L (3.5-5.1)
--- NOTE | 2020-01-31 17:46 | NUR ---
ASSUMED CARE AT CHANGE OF SHIFT. PT ALERT X4. DEBIES SOB, DENIES CHEST PAIN, HEART ELAVATES WITH ADL'S. CARDIOLOGY INCREASED METOPROLOL TO 150MG THIS MORNING. WITH WALKING THE GARG WITH PRIMARY NURSE THIS AFTERNOON HEART ELEVATED AND REMAINED IN THE 150'S. NOTIFIED DR DSOUZA WITH ORDERS TO GIVE 2100 METOPROLOL EARLY. WILL MONITOR AND PLACE SECONE IV IF PT REQUIRES IV CARDIZEM DRIP PER PRN ORDERS. CALL LIGHT AND PERSONAL ITEMS IN REACH.
[2020-01-31 20:30] VITALS: BP 117/73
--- NOTE | 2020-02-01 04:23 | NUR ---
PT IS ALERT AND ORIENTED X4. LUNGS ARE CLEAR ON ROOM AIR. SLEEPING IN THE RECLINER FOR THE NIGHT . DENIES ANY PAIN. LUNGS ARE CLEAR.. A FIB ON THE HIGH RISK CASE MANAGER AND A CONTROLED RATE. ANTIBIOTICS GIVNE ORDREED. NO COMPLAINTS NOTED OR CONCERNS . LAYNE DRAINS X2 TO LOWER RIGHT ABDOMEN. WILL CONTINUE TO ASSESSS AND MONITOR PER NURSING
[2020-02-01 04:45] VITALS: BP 145/90
[2020-02-01 08:36] VITALS: BP 135/76
[2020-02-01 13:27] VITALS: BP 132/72
[2020-02-01 16:49] VITALS: BP 132/67
[2020-02-01 20:30] VITALS: BP 138/71
--- NOTE | 2020-02-02 02:38 | NUR ---
ASSUMED CARE OF PATIENT AT 1900. 2 LAYNE DRAINS REMAIN PATENT BOTH DRAINING SEROSANGUINEOUS FLUID. PATIENT C/O PAIN AROUND DRAIN SITES WHERE STITCHES ARE. ADMINISTERED PRN PAIN MED AT HS. PATIENT CURRENTLY RESTING AND APPEARS TO BE PROGRESSING TOWARDS CARE PLAN GOALS.
[2020-02-02 04:45] VITALS: BP 140/66
[2020-02-02 08:20] VITALS: BP 132/85
--- NOTE | 2020-02-02 11:07 | 2DMMODE ---
[facility] [place] [address] 2 D/M-MODE ECHOCARDIOGRAM Name: MJ ESCOBEDO Room #: 219-P ADM IN M.R.#: [id number] Admission: 01/23/20 Attend Phys: Pedro Garibay MD Discharge: Date of : 49 Report #: [id number] THIS REPORT FOR: cc: Miller Berry MD, Christopher B. MD Santiago, Patrick MD [facility] ~ APPROVED REPORT Study performed: 02/01/2020 09:37:22 EXAM: Comprehensive 2D, Doppler, and color-flow Echocardiogram Patient Location: Bedside Room #: 219 Status: routine BSA: 2.45 HR: 106 bpm BP: 145/90 mmHg Rhythm: Atrial Fibrillation Other Information Study Quality: Adequate Indications Atrial Fibrillation Hypertension/HDD HLD 2D Dimensions RVDd: 46.84 mm IVSd: 12.91 (7-11mm) LVOT Diam: 22.75 (18-24mm) LVDd: 42.05 mm PWd: 11.70 (7-11mm) Ascending Ao: 37.65 (22-36mm) LVDs: 31.46 (25-40mm) Aortic Root: 34.70 mm IVC: 22.00 mm Volumes Left Atrial Volume (Systole) Single Plane 4CH: 159.69 mL Single Plane 2CH: 135.19 mL LA ESV Index: 66.00 mL/m2 Aortic Valve AoV Peak Wilber.: 1.25 m/s AO Peak Gr.: 6.23 mmHg LVOT Max P.16 mmHg LVOT Max V: 0.89 m/s [facility] [address] [place] [address] 2 D/M-MODE ECHOCARDIOGRAM Name: MJ ESCOBEDO Room #: 219-P [facility] IN [facility]#: [id number] Admission: 01/23/20 Attend Phys: Pedro Garibay MD Discharge: Date of : 49 Report #: [id number] RAFAEL Vmax: 2.89 cm2 Mitral Valve MV Decel. Time: 209.91 ms MV E Max Wilber.: 0.79 m/s IVRT: 101.50 ms Pulmonary Valve PV Peak Wilber.: 0.85 m/s PV Peak Gr.: 2.87 mmHg Tricuspid Valve TR Peak Wilber.: 2.71 m/s RAP Estimate: 10.00 mmHg TR Peak Gr.: 29.42 mmHg PA Pressure: 39.00 mmHg Left Ventricle The left ventricle is normal size. Mild concentric left ventricular hypertrophy. Left ventricular systolic function is borderline. LVEF is 50%. This study is not technically sufficient to allow evaluation of the LV diastolic function due to atrial fibrillation. Right Ventricle Right ventricle is moderately dilated. The right ventricular systolic function is normal. Atria Left atrium is severely dilated. Right atrium is severely dilated. Aortic Valve The aortic valve is normal in structure. Trace aortic regurgitation. There is no aortic valvular stenosis. Mitral Valve The mitral valve is normal in structure. Moderate mitral regurgitation. No evidence of mitral valve stenosis. Tricuspid Valve The tricuspid valve is normal in structure. Mild tricuspid regurgitation. PAP is estimated at 39 mmHg. Pulmonic Valve The pulmonary valve is normal in structure. Mild pulmonic regurgitation. Great Vessels [facility] [address] [place] [address] 2 D/M-MODE ECHOCARDIOGRAM Name: MJ ESCOBEDO Room #: 219-P [facility] IN .R.#: [id number] Admission: 01/23/20 Attend Phys: Pedro Garibay MD Discharge: Date of : 49 Report #: [id number] The aortic root is normal in size. IVC is dilated and collapses >50% with inspiration. Pericardium There is no pericardial effusion. <Conclusion> Normal left ventricle size, mild concentric hypertrophy ejection fraction 50% Moderate to severe biatrial enlargement Mild to moderate mitral valve insufficiency Mild tricuspid valve insufficiency with a PA pressure systolic estimated at 39 mmHg Moderately dilated right ventricle <ELECTRONICALLY SIGNED> By: Paras Capellan MD, [facility] 02/02/20 1107 06 06 Paras Capellan MD, FACC /INF
[2020-02-02 16:39] VITALS: BP 117/77
--- NOTE | 2020-02-02 17:33 | NUR ---
ASSUMED CARE OF PT AT SHIFT CHANGE, A&0X4, AMBS W/WALKER, GAIT, SLIGHTLY FORGETFUL, SPOUSE VISITS ALL DAY AND LIKES TO HELP W/CARES. PARKINSONS, CHRONIC AFIB, PT'S HR TACHY WITH AMBULATION, HIGH 170 MOMENTARILY WHEN UP TO BATHROOM, LATER W/ADM OF CARDIZEM PO HR REMAINED WNL WHILE AMB IN HALLS. SLIGHTLY [place] AND LIKES TO DEFER ANSWERS TO SIMPLE QUESTIONS TO HIS SPOUSE. ENCOURAGED BOTH TO USE CALL LIGHT FOR ANY NEEDS AND THEY DO. SEE SEPARATE INTERVENTIONS FOR ASSESSMENTS
[2020-02-02 19:27] VITALS: BP 119/72
--- NOTE | 2020-02-03 02:10 | NUR ---
ASSUMED CARE OF PATIENT AT 1900. LAYNE DRAIN X 2 REMAIN PATENT. DRAIN TWO DRAINING DARK GREENISH COLOR FLUID. DRESSING INTACT TO SITE. PATIENT DENIES PAIN AND IS AFEBRILE.
[2020-02-03 05:37] VITALS: BP 116/51
[2020-02-03 08:44] LABS: CALCIUM 8.4 mg/dL (8.5-10.1); CREATININE 1.6 mg/dL (0.7-1.3); POTASSIUM 4.4 mmol/L (3.5-5.1)
--- NOTE | 2020-02-03 10:32 | NUR ---
spoke with patient who reports they do not want [facility] rehab want to dc home. reports they rec [facility] in past and agreeable to care. Referral to be sent to [facility]. PCP Dr Harpreet Berry, verified address and phone number.
[2020-02-03] MEDS ORDERED: AUGMENTIN 875-1 EACH PO (11:34)
[2020-02-03 13:44] VITALS: BP 116/51
--- NOTE | 2020-02-03 13:46 | NUR ---
FAXED REFERRAL TO [facility] SPOKE WITH INTAKE AND THEY RECEIVED REFERRAL AND WILL ACCEPT AT [facility].
[2020-02-03 19:54] VITALS: BP 133/70
[2020-02-04 05:20] VITALS: BP 141/89
[2020-02-04] MEDS ORDERED: LOPRESSOR50 PO (07:48)
[2020-02-04] MEDS ORDERED: CARDIZEM CD120 MG PO (07:48)
--- NOTE | 2020-02-04 08:01 | NUR ---
ASSUMED CARE OF PATIENT AT 1900; ASSESSMENTS CHARTED; VSS/AFIB ON MONITOR; NO DISTRESS NOTED; 2 LAYNE DRAINS ON PT RLQ, JP1 W/ SEROUS DRAINAGE WITH SCANT OUTPUT, JP2 DARK GREEN DRAINAGE WITH LARGE OUTPUT; POC IS FOR PATIENT D/C TO HOME W/DRAINS IN PLACE AND CONTROLLED HEART RATE; PLAN IS POSSIBLE D/C TODAY; POSSIBILITY OF OUTPATIENT JARRELL POST-INFECTION; WILL CONTINUE TO MONITOR.
[2020-02-04 08:30] VITALS: BP 147/77
[2020-02-04 10:24] VITALS: BP 116/51
[2020-02-04] MEDS ORDERED: PEPCID20 MG PO (11:14)
[2020-02-04 12:00] VITALS: BP 129/74
[2020-02-04 12:33] VITALS: BP 116/51
--- NOTE | 2020-02-04 13:37 | NUR ---
08:00- PT. ALERT AND WATCHING TV, TELLING ME HE IS READY TO GO HOME TODAY AND EXCITED TO DO SO. LAYNE DRAINS ARE ACTIVELY DRAINING AND DRAIN #2 CONTINUES TO HAVE MORE OUTPUT-DUMPED 6OML OF BILE LOOKING OUTPUT FROM IT. DRAIN #1 ONLY HAD 10ML STRAW COLORED OUTPUT, YELLOW. IV ANTIBIOTICS CONTINUE INFUSING TO LEFT FOREARM IV WITH NO SIGN'S OF INFILTRATION OR MOTTLING, ARM IS WARM TO TOUCH. FOLLOWS COMMANDS AND AMBULATES WITH HELP TO THE RESTROOM. IS ONHER WAY UP TO SEE PATIENT. MD ROY WILL DISCHARGE TODAY SHE SHARED WITH ME. AFIB IS CONTROLLED RATE IT HAS BEEN FOR SOMETIME NOW, NO ECTOPY.
--- NOTE | 2020-02-04 14:25 | NUR ---
PT DISCHARGING TODAY TO HOME WITH [facility] FAXED DC ORDERS/SUMMARY SPOKE WITH ELIDIA IN INTAKE SHE RECEIVED ORDERS AND WILL NOTIFY PT TO SET UP VISITS.
== END 2020-02-04 14:03 | disposition home health service (06) | DRG 853 ==
LOC: ER 10:06 → ICU 12:52 → EROBS 12:52 → ICU 15:16 → 2N 01-28 15:50
PROVIDERS: Emergency Medicine; Hospitalist; Internal Medicine; Internal Medicine Gastroenterology; Nurse Practitioner; ADMIT Internal Medicine; ATTEND Internal Medicine
PROC: 0F1 Hepatobiliary System and Pancreas, Bypass (ICD-10-PCS; principal; 2020-01-23)
PROC: 0F9040Z Drainage of Liver with Drainage Device, Percutaneous Endoscopic Approach (ICD-10-PCS; principal; 2020-01-23)
PROC: 5A09357 Assistance with Respiratory Ventilation, Less than 24 Consecutive Hours, Continuous Positive Airway Pressure (ICD-10-PCS; 2020-01-30)
PROC: 5A09357 Assistance with Respiratory Ventilation, Less than 24 Consecutive Hours, Continuous Positive Airway Pressure (ICD-10-PCS; 2020-02-01)
PROC: 5A09357 Assistance with Respiratory Ventilation, Less than 24 Consecutive Hours, Continuous Positive Airway Pressure (ICD-10-PCS; 2020-02-02)
DX: A41.9 Sepsis, unspecified organism (principal); E43 Unspecified severe protein-calorie malnutrition; N17.9 Acute kidney failure, unspecified; I48.19 Other persistent atrial fibrillation; E87.2 Acidosis; I50.32 Chronic diastolic (congestive) heart failure; I13.0 Hypertensive heart and chronic kidney disease with heart failure and stage 1 through stage 4 chronic kidney disease, or unspecified chronic kidney disease; Z96.651 Presence of right artificial knee joint; Z96.642 Presence of left artificial hip joint; I48.91 Unspecified atrial fibrillation; F31.9 Bipolar disorder, unspecified; M19.90 Unspecified osteoarthritis, unspecified site; G20 Parkinson's disease; J43.9 Emphysema, unspecified; K82.A1 Gangrene of gallbladder in cholecystitis; I25.10 Atherosclerotic heart disease of native coronary artery without angina pectoris; E78.5 Hyperlipidemia, unspecified; G47.33 Obstructive sleep apnea (adult) (pediatric); F02.80 Dementia in other diseases classified elsewhere, unspecified severity, without behavioral disturbance, psychotic disturbance, mood disturbance, and anxiety; E11.22 Type 2 diabetes mellitus with diabetic chronic kidney disease; D64.9 Anemia, unspecified; D63.8 Anemia in other chronic diseases classified elsewhere; Z20.828 Contact with and (suspected) exposure to other viral communicable diseases; N18.9 Chronic kidney disease, unspecified; Z87.891 Personal history of nicotine dependence; Z68.37 Body mass index [BMI] 37.0-37.9, adult; Z79.01 Long term (current) use of anticoagulants; Z79.899 Other long term (current) drug therapy
CPT/HCPCS: 10078; 10081; 10203; 50101; 50249; 50411; 50555; 51489; 52265; 52266; 53307; 53312; 53314; 54118; 55245; 55317; 56462; 56525; 56526; 62110; 62900; 70005

== ENCOUNTER → 2020-03-16 | Outpatient (CLI) | payer OTHER, MEDICARE ==
[~2020-03-16] MED LIST changes: +AUGMENTIN 875-1 EACH PO; +CARBIDOPA-LEVO1 EAC1 PO; +CARDIZEM CD120 MG PO; +IRON325 M1 PO; +LOPRESSOR50 PO; +OCUVITE TABLET1 EAC1 PO; +PEPCID20 MG PO; +POTASSIUM600 MG PO; +PRILOSEC OTC20 MG PO; +STOOL SOFTENER1 EAC2 PO; +VITAMIN C1000 MG PO; +ZINC50 M2 PO
== END ==
LOC: CAT 16:10
PROVIDERS: ATTEND Surgery
DX: R19.5 Other fecal abnormalities (principal); K57.30 Diverticulosis of large intestine without perforation or abscess without bleeding; N28.1 Cyst of kidney, acquired; K81.0 Acute cholecystitis; N40.0 Benign prostatic hyperplasia without lower urinary tract symptoms; I51.7 Cardiomegaly; I25.10 Atherosclerotic heart disease of native coronary artery without angina pectoris; I70.0 Atherosclerosis of aorta; M25.78 Osteophyte, vertebrae

== ENCOUNTER → 2020-03-16 | Outpatient (CLI) | payer OTHER, MEDICARE | LOC: SJCVC 13:27 | PROVIDERS: ATTEND Internal Medicine | DX: R94.31 Abnormal electrocardiogram [ECG] [EKG] (principal); I48.21 Permanent atrial fibrillation; I11.0 Hypertensive heart disease with heart failure; I50.32 Chronic diastolic (congestive) heart failure; E78.5 Hyperlipidemia, unspecified; G47.33 Obstructive sleep apnea (adult) (pediatric); G20 Parkinson's disease; Z79.01 Long term (current) use of anticoagulants; Z79.899 Other long term (current) drug therapy; Z87.891 Personal history of nicotine dependence ==

== ENCOUNTER 2020-03-22 09:47 | Emergency (ER) | payer OTHER, MEDICARE ==
[~2020-03-22] VITALS: Ht 182.9 cm; Wt 113.4 kg
[2020-03-22 10:21] LABS: URINE BILIRUBIN NEGATIVE (Negative); URINE BLOOD 3+ (Negative); URINE CLARITY CLOUDY; URINE COLOR RED; URINE GLUCOSE-RANDOM* NEGATIVE (Negative); URINE KETONES NEGATIVE (Negative); URINE LEUKOCYTES-REFLEX 2+ (Negative); URINE NITRITE-REFLEX NEGATIVE (Negative); URINE PROTEIN (DIPSTICK) 2+ (Negative); URINE UROBILINOGEN 0.2 E.U./dl (0.2-1.0)
[2020-03-22 10:23] LABS: URINE RBC >20 Many /HPF (0-2)
[2020-03-22 10:24] LABS: CASTS None Seen /LPF (None Seen); CRYSTALS None Seen /LPF (None Seen); SQUAMOUS None Seen /LPF (0-3)
[2020-03-22 10:25] LABS: BACTERIA-REFLEX 1-9 Few /HPF (None Seen)
[2020-03-22] MEDS ORDERED: KEFLEX500 M1 PO (10:42)
[2020-03-22 11:20] VITALS: BP 133/71
== END 2020-03-22 11:21 | disposition home or self-care (01) ==
LOC: ER 09:47
PROVIDERS: Emergency Medicine
DX: N39.0 Urinary tract infection, site not specified (principal); I10 Essential (primary) hypertension; I48.91 Unspecified atrial fibrillation; J44.9 Chronic obstructive pulmonary disease, unspecified; Z86.2 Personal history of diseases of the blood and blood-forming organs and certain disorders involving the immune mechanism; Z79.899 Other long term (current) drug therapy; Z87.891 Personal history of nicotine dependence

== ENCOUNTER → 2020-03-25 | Outpatient (CLI) | payer OTHER, MEDICARE ==
[~2020-03-25] MED LIST changes: +DILTIAZEM ER240 MG PO; +KEFLEX500 M1 PO; +LEVOXYL50 MCG PO; +METOPROLOL TAR100 MG PO; +VITAMIN D3125 MC2 PO
== END ==
LOC: LAB 10:20
PROVIDERS: ATTEND Surgery
DX: Z01.812 Encounter for preprocedural laboratory examination (principal); Z20.828 Contact with and (suspected) exposure to other viral communicable diseases

== ENCOUNTER 2020-03-31 07:59 | Inpatient (IN) | payer OTHER, MEDICARE ==
[2020-03-31] VITALS (7 sets, daily range): BP systolic 130–178; BP diastolic 75–99
[~2020-03-31] VITALS: Ht 182.9 cm; Wt 113.4 kg
[2020-03-31 08:53] LABS: HEMATOCRIT 35.7 % (42.0-52.0)
--- NOTE | 2020-03-31 14:57 | NUR ---
ASSUMED PT CARE UPON ADMISSION TO UNIT. PT HAS NO COMPLAINTS OF PAIN. A&OX4. PT PLACED ON TELE. ADMISSION COMPLETED. AT BEDSIDE, ABLE TO ASSIST WITH MED REC. PT REPORTED HE HAD A PREVIOUS UTI AND HAD JUST FINISHED ANTIBIOTICS. PT ON CLEAR LIQUIDS, TOLERATING WELL.
--- NOTE | 2020-03-31 15:57 | NUR ---
PT HAD OP LAP JARRELL DONE THIS DAY PT WAS ADMITTED FOR ERCP PLANNED FOR TOMORROW. CM ATTEMPTED PC TO PT'S ROOM AND HIS ANSWERED. SHE INDICATED THAT PT RESIDES IN A HOUSE WITH 3 STEPS TO ENTER AND NONE INSIDE. SHE INDICATED THAT PT HAS A FWW, CANE, CPAP, GB, AND TOILET RISER FOR HOME USE. SPOUSE INDIATED THAT PT HAD BEEN ON SERVICE WITH [facility] AND THAT THEY HAD DISCHARGED PT A WEEK TO 10 DAYS AGO. SHE INDICATED THAT PT HAD BEEN INDEPENDENT WITH [employer]. SHE INDICATED THAT THEY PLAN FOR PT TO RETURN HOME ONCE MEDICALLY STABLE. THEY ARE RECEPTIVE TO [facility] IF NEEDED UPON DC. CM TO FOLLOW INDICATED WITH DC PLANNING.
[2020-03-31] MEDS ORDERED: LORAZEPAM 0.50.5 MG PO (19:52)
[2020-04-01 00:22] VITALS: BP 159/77
--- NOTE | 2020-04-01 03:49 | NUR ---
REQUESTED HOME ATIVAN TO BE RESUMED. CALLED AND OBTAINED AN ORDER. NPO POST MN FOR ERCP IN AM. NO S/S ACUTE DISTRESS NOTED OR REPORTED
[2020-04-01 04:50] VITALS: BP 148/77
[2020-04-01 05:53] LABS: HEMATOCRIT 33.7 % (42.0-52.0); HEMOGLOBIN 10.6 gm/dL (14.0-18.0); MCH 26.3 pg (26.0-34.0); MCHC 31.4 g/dL (28.0-37.0); MCV 83.9 fL (80.0-100.0); RBC 4.02 mil/uL (4.50-6.00); RDW 17.1 % (10.5-14.5); WBC 3.1 thou/uL (4.0-11.0)
[2020-04-01 06:21] LABS: ALBUMIN 2.3 g/dL (3.4-5.0); CALCIUM 8.8 mg/dL (8.5-10.1); CREATININE 1.3 mg/dL (0.7-1.3); TOTAL BILIRUBIN 0.4 mg/dL (0.2-1.0); TOTAL PROTEIN 6.6 g/dL (6.4-8.2)
[2020-04-01 07:24] VITALS: BP 151/75
--- NOTE | 2020-04-01 10:17 | O ---
[facility] [place] [address] OPERATIVE REPORT Name: MJ ESCOBEDO Room #: 450-P ADM IN M.R.#: [id number] Admission: 03/31/20 Attend Phys: Lam Perkins MD Discharge: Date of : 49 Report #: [id number] THIS REPORT FOR: cc: Miller Berry MD,Miller Perkins,Lam Sood MD ~ CC: Harpreet Rosales MD [facility] Lam Perkins DATE OF SERVICE: 03/31/2020 PREOPERATIVE DIAGNOSIS: Status post acute cholecystitis, treated with gallbladder drain. Here for cholecystectomy. POSTOPERATIVE DIAGNOSIS: Status post acute cholecystitis, treated with gallbladder drain, here for cholecystectomy and cholangiogram showing common duct stone. SURGEON: Lam Perkins MD ANESTHESIA: General anesthesia. COMPLICATIONS: None. ESTIMATED BLOOD LOSS: 70 mL. FINDINGS: The gallbladder was fibrotic and moderately contracted. Cholangiogram did show a distal common duct stone. Consent for ERCP has been obtained. DESCRIPTION OF PROCEDURE: With the patient under general anesthesia, the abdomen was prepped and draped in sterile fashion. The patient received preoperative IV antibiotic. An incision was made above the umbilicus. Fascia was identified. Fascia was then opened under visualization, 0 Vicryl suture placed on the fascia for retraction. With the abdominal wall lifted anteriorly, a Veress needle was then placed through the peritoneum. The abdominal cavity was insufflated with CO2. After creating pneumoperitoneum, an 11 mm trocar was placed under visualization. The patient had a veil of adhesion over the right upper quadrant. This is essentially fatty. The colon is more posterior. The adhesion was taken down. There was also adhesion between the lobe wall and the liver. The gallbladder was covered by adhesions. These adhesions were able to be taken off the gallbladder. Gallbladder was noted to be thickened and contracted. Fibrosis was found through the gallbladder. Proximal part of the [facility] [address] [place] [address] OPERATIVE REPORT Name: MJ ESCOBEDO Room #: 450-P [facility] IN [facility]#: [id number] Admission: 03/31/20 Attend Phys: Lam Perkins MD Discharge: Date of : 49 Report #: [id number] gallbladder was identified. The common duct is felt to be more medial and posterior and not able to be visualized. Dissection was carried out at the triangle of Calot. The cystic duct was isolated bluntly. There was an artery that was more inferiorly over the triangle that was over the ngoc hepatis. This was cauterized and then clipped. This is felt to be ___ branch. The cystic duct was able to be dissected free. Cystic duct was moderately enlarged. The junction of cystic duct to the gallbladder was then tied. A clip was placed here. Opening was made in the cystic duct. Cholangiogram catheter was placed. Fluoroscopic cholangiogram was obtained. The duct did fill out well and there appeared to be a filling defect. I did give the patient glucagon and after given glucagon, further dye was placed and I can visualize the duct better and I can see the dye going into the duodenum. The stone is partially obstructing. The cholangiogram catheter was then removed. The proximal cystic duct was then clipped x 2 and then divided. There is an artery that was posterior to the cystic duct that was bleeding and that was cauterized, there was a clip. I was able to identify this artery better and then a small artery branch. This was clipped additional time proximally and then 1 distally. This was then divided. The main artery was found. This was more anteriorly located. This was isolated, divided with clips and then this was clipped x 2 proximally and 1 distally and then divided. Gallbladder was then freed from the liver bed. The gallbladder was pretty fibrotic to the bed and the gallbladder was entered and the rest of the gallbladder was left behind was then able to be removed essentially taken the liver bed into the liver tissue. Hemostasis obtained with cautery. The gallbladder had some sludgy thick material, but no further stone. This was what was seen. The patient did not have any stone on his imaging in the gallbladder. That is because I think when he was sick in December, he passed a stone and it has been in the duct since then. Gallbladder was then removed, placed in a specimen bag. Liver bed was checked, hemostasis obtained. Surgicel was placed over the bed in the ngoc hepatis and over the cystic artery area. Irrigation was aspirated out. Trocars were removed. CO2 was evacuated. The fascia defect above the umbilicus closed with [id number] 0 Vicryl x 2. Skin was irrigated. Skin was closed with 5-0 PDS. Steri-Strip, Band-Aids applied. The patient tolerated the procedure well. <ELECTRONICALLY SIGNED> By: Lam Perkins MD 04/01/201016 08 49 Lam Perkins MD /nt
--- NOTE | 2020-04-01 10:43 | NUR ---
PT HAVING ERCP THIS DAY. CM TO FOLLOW INDICATED WITH DC PLANNING.
--- NOTE | 2020-04-01 15:25 | NUR ---
Care team indicated that ERCP performed today, sphincterotomy done and a single stone removed from the CBD, several balloon sweeps performed, no further stones noted. Care team indicated that they Rec- observe s/p ERCP, anticipate likely home tomorrow. Pt had used [facility] previously. Cm following should pt and spouse wish to have hh services upon dc this time.
[2020-04-01 18:57] VITALS: BP 138/80
--- NOTE | 2020-04-01 19:00 | NUR ---
I AGREE WITH NURSING ASSESSMENT AND NURSING NOTE DONE BY JOSE MARTIN/PARTS CLASSIFIER.
--- NOTE | 2020-04-01 19:38 | NUR ---
ASSUMED PATIENT CARE AT 0700. ASSESSMENT CHARTED. MEDICATIONS ADMINISTERED PER MAR. AFTER ISAIAH RN IMPLEMENTED ORDERS HR SUSTAINED BACK TO 80'S. PATIENT IS A&OX4 AND MAKES NEEDS KNOWN. HAD PROCEDURE TODAY W SUCCESS. PCP SAW PATIENT TODAY AFTER AND DISCUSSED POSSIBLE D/C TOMORROW. LAP SITES REMAIN C/D/I. PATIENT VOICED PAIN IMPROVED AFTER EATING AND BELCHING. PRN ANALGESIC ADMINISTERED PER ORDER. NEW IV ON R HAND STARTED IN PRE-OP. C/O BEING COLD BUT NO OTHER NEEDS. FALL PRECAUTIONS IN PLACE. ENDORSED TO ISAIAH RN.
[2020-04-02 07:04] VITALS: BP 141/107
--- NOTE | 2020-04-02 07:04 | NUR ---
progress pt a/o x4 vss, incisions x 4 to abdomen covered with bandaids remain c/d/i. bs positive and pt reports belching and passing flatus. denies pain took hydrocodone x 1 with effect. continue poc.
--- NOTE | 2020-04-02 08:45 | NUR ---
ASSUMED PATIENT CARE AT 0700. ASSESSMENT CHARTED. BP ELEVATED THIS AM. PSYCHOLOGIST CLINICAL WAS IN ROOM AND STATED "NOT TO WORRY ABOUT THIS ONE TIME THING", WAS MADE KNOWN THAT HEART RATE WAS LOW AND BP WAS HIGH TAKEN MULTIPLE TIMES ON BOTH ARMS. WAS INFORMED BETA BIENVENIDO WAS ADMINSTERED. PATIENT APPEARS ASYMPTOMATIC. DENIES PAIN. IS HAPPY TO POTENTIALLY DISCHARGE THIS DAY. BANDAGES ON LAP SITES REMAIN C/D/I. PCP ALSO INFORMED ABOUT HIGH BP. USING URINAL AND MAKES NEEDS KNOWN. CONTINUING TO MONITOR ELEVATED BP. FALL PRECAUTIONS IN PLACE
[2020-04-02 10:59] LABS: ALBUMIN 2.4 g/dL (3.4-5.0); DIRECT BILIRUBIN 0.2 mg/dL (<0.1-0.2); TOTAL BILIRUBIN 0.4 mg/dL (0.2-1.0); TOTAL PROTEIN 6.5 g/dL (6.4-8.2)
[2020-04-02] MEDS ORDERED: HYDROCODON-ACE1 EAC7 PO (12:53)
[2020-04-02 13:06] VITALS: BP 141/107
--- NOTE | 2020-04-02 13:11 | NUR ---
CARE TEAM INDICATED THAT PT IS MEDICALLY STABLE TO DC HOME THIS DAY. CARE TEAM INDICATED THAT HE IS TO DC HOME TO SELF CARE. NO OTHER CM INTERVENTION INDICATED. CASE CLOSED.
--- NOTE | 2020-04-02 14:41 | NUR ---
I AGREE WITH NURSING ASSESSMENT AND NURSING NOTE DONE BY JOSE MARTIN/SPECIAL DELIVERY CLERK.
--- NOTE | 2020-04-02 16:06 | PATH ---
[facility] [address] [place] [address] PATHOLOGY RPT PROCEDURE Name: MJ ESCOBEDO Room #: 450-P [facility] IN M.R.#: [id number] Admission: 03/31/20 Date of : 49 Discharge: 04/02/20 Report #: [id number] Path Case #: [id number] [facility] Accession Number: [id number] . 01 Material submitted: . gallbladder - GALLBLADDER . 01 Clinical history: . ACUTE CHOLECYSTITIS, LESION CHEST WALL . 02 Diagnosis: Gallbladder, cholecystectomy: - Mild chronic cholecystitis. - Cholesterolosis. (IUV:pit 04/02/2020) QTP 04/02/2020 1204 Local . 02 Electronically signed: . Brina Miller MD, Pathologist NPI- [id number] . 01 Gross description: . The specimen is received in formalin, labeled "Clement Escobedo, gallbladder". Received is a previously opened/torn gallbladder measuring 5.8 x 2.0 x 2.0 cm in greatest dimensions displaying a pink-call, ragged serosal surface. Opening the specimen reveals a velvety, light trammell mucosa with a gallbladder wall thickness of 0.1 cm. Calculi are not present, and no masses or lesions are noted grossly. Bolt Machine Operator sections, to include the proximal margin, are submitted in cassette A1. (CAA; 04/01/2020) QA/QA 04/01/2020 1210 Local . 02 Pathologist provided ICD-10: K81.1, K82.4 . 02 CPT . 641669 Specimen Comment: A courtesy copy of this report has been sent to [phone] Specimen Comment: [phone] Specimen Comment: Report sent to / DR AHNKS Performed at: [address] [id number] MD Asa Christopher MD Phone: [phone] Performed at: [address] [address] PATHOLOGY RPT PROCEDURE Name: MJ ESCOBEDO Room #: 450-P DIS IN M.R.#: [id number] Admission: 03/31/20 Date of : 49 Discharge: 04/02/20 Report #: [id number] Path Case #: [id number] [address] [place], [place] [id number] MD Brina Miller MD Phone: [phone]
--- NOTE | 2020-04-03 11:56 | P ---
[facility] [place] [address] [place] [address] PROCEDURE REPORT Name: MJ ESCOBEDO Room #: 450-P [facility] IN .R.#: [id number] Admission: 03/31/20 Attend Phys: Lam Perkins MD Discharge: 04/02/20 Date of : 49 Report #: [id number] THIS REPORT FOR: cc: Miller Berry MD, Christopher B. MD McElhinney, Christian C. MD ~ CC: Harpreet Perkins MD DATE OF SERVICE: 04/01/2020 PROCEDURE PERFORMED: ERCP with sphincterotomy and stone removal. HISTORY OF PRESENT ILLNESS: The patient is a 75-year-old male with a history of abdominal pain, elevated liver function test, was hospitalized in December for similar symptoms. Bilirubin at that time peaked at 5.8. MRCP was negative for common bile duct stones at that time. He underwent a diagnostic laparoscopy with drainage of hepatic abscess and placement of cholecystostomy tube on 01/25/[address] Brito, he was then placed on IV antibiotics and eventually drains were removed. He then followed up with Dr. Perkins and underwent a laparoscopic cholecystectomy yesterday. Intraoperative cholangiogram yesterday showed a small filling defect within the distal common bile duct concerning for choledocholithiasis. The patient's white blood cell count 3.1, hemoglobin 10.6, total bilirubin 0.4, AST 20, ALT 14, alkaline phosphatase 89, albumin 2.3. Plan today is for ERCP. DESCRIPTION OF PROCEDURE: The risks and benefits of the procedure were explained to the patient, those risks including but not limited to bleeding, perforation, the risk of sedation as well as the potential risk for post-ERCP pancreatitis. The patient understood these risks and gave informed consent. The procedure was performed in the operating room under general anesthesia. The patient was given 2 grams of Ancef IV prior to the procedure. He was also given 50 mg indomethacin rectal suppository. Next, using an Olympus side-viewing ERCP scope, the scope was placed in the patient's mouth and advanced under direct vision through the esophagus, stomach and into the second portion of the duodenum, at which point, the major papilla was identified and normal in appearance. Next, using a Manta 0.025 sphincterotome catheter, the common bile duct was cannulated and a cholangiogram was obtained. A single filling defect was noted. The cystic duct filled, there was no evidence of bile leak. The intrahepatic ducts were normal. The common bile duct was not significantly dilated. There did appear to be a small area intrahepatically of increased collection of bile. Next, a sphincterotomy was performed without difficulty. When the sphincterotome was removed, a single stone was removed with the sphincterotome at this point. Next, a balloon catheter was then advanced over [facility] [address] [place] [address] PROCEDURE REPORT Name: MJ ESCOBEDO Room #: 450-P [facility] IN [facility].#: [id number] Admission: 03/31/20 Attend Phys: Lam Perkins MD Discharge: 04/02/20 Date of : 49 Report #: [id number] the guidewire into the intrahepatic duct and several balloon sweeps were performed. No further stones or debris were seen. At this point, a balloon occlusion cholangiogram was obtained. No further filling defects were noted. At this point, the balloon catheter and wire removed. The scope was then withdrawn and the procedure terminated. The patient tolerated the procedure well. IMPRESSION: 1. Choledocholithiasis, status post ERCP with sphincterotomy and stone removal. 2. Balloon sweeps showing no further filling defects after balloon sweeps. 3. Normal-appearing common bile duct, otherwise normal intrahepatics other than a small area of dilation. We will review this with the radiologist. No evidence of bile leak. RECOMMENDATIONS: Observe the patient post-procedure. Thank you for allowing me to participate in his care. <ELECTRONICALLY SIGNED> By: Meek Matson MD 04/03/20 1156 1513 0009 Meek Matson MD /nt
== END 2020-04-02 14:30 | disposition home or self-care (01) | DRG 417 ==
LOC: OR 07:59 → TBA 08:00 → OR 09:58 → 4W 13:52 → OR 13:53 → 4W 04-02 14:30
PROVIDERS: Nurse Practitioner; ADMIT Surgery; ATTEND Surgery
PROC: 0FT44ZZ Resection of Gallbladder, Percutaneous Endoscopic Approach (ICD-10-PCS; principal; 2020-03-31)
PROC: 0FC98ZZ Extirpation of Matter from Common Bile Duct, Via Natural or Artificial Opening Endoscopic (ICD-10-PCS; 2020-04-01)
DX: K80.62 Calculus of gallbladder and bile duct with acute cholecystitis without obstruction (principal); K75.0 Abscess of liver; E46 Unspecified protein-calorie malnutrition; I50.32 Chronic diastolic (congestive) heart failure; D68.59 Other primary thrombophilia; I48.21 Permanent atrial fibrillation; I11.0 Hypertensive heart disease with heart failure; I25.10 Atherosclerotic heart disease of native coronary artery without angina pectoris; E78.5 Hyperlipidemia, unspecified; G47.33 Obstructive sleep apnea (adult) (pediatric); G20 Parkinson's disease; Z79.899 Other long term (current) drug therapy; Z68.33 Body mass index [BMI] 33.0-33.9, adult
CPT/HCPCS: 10045; 50010; 50101; 50411; 50555; 50558; 51489; 51687; 52265; 53307; 53310; 53312; 55245; 55317; 56462; 56525; 56526; 56719; 62110; 62900; 70005

== ENCOUNTER → 2020-09-14 | Outpatient (CLI) | payer OTHER, MEDICARE ==
[~2020-09-14] MED LIST changes: +HYDROCODON-ACE1 EAC7 PO; +LORAZEPAM 0.50.5 MG PO
== END ==
LOC: SJCVC 10:34
PROVIDERS: ATTEND Internal Medicine
DX: R94.31 Abnormal electrocardiogram [ECG] [EKG] (principal); I48.21 Permanent atrial fibrillation; I50.32 Chronic diastolic (congestive) heart failure; I11.0 Hypertensive heart disease with heart failure; E78.5 Hyperlipidemia, unspecified; G47.33 Obstructive sleep apnea (adult) (pediatric); G20 Parkinson's disease; R42 Dizziness and giddiness; Z86.16 Personal history of COVID-19; Z79.01 Long term (current) use of anticoagulants; Z87.891 Personal history of nicotine dependence; Z79.899 Other long term (current) drug therapy; Z87.448 Personal history of other diseases of urinary system

== ENCOUNTER → 2021-03-22 | Outpatient (CLI) | payer OTHER, MEDICARE | LOC: SJCVC 13:34 | PROVIDERS: ATTEND Internal Medicine | DX: R94.31 Abnormal electrocardiogram [ECG] [EKG] (principal); I45.19 Other right bundle-branch block; I44.5 Left posterior fascicular block; I11.0 Hypertensive heart disease with heart failure; I50.32 Chronic diastolic (congestive) heart failure; I48.21 Permanent atrial fibrillation; G47.33 Obstructive sleep apnea (adult) (pediatric); G20 Parkinson's disease; E78.5 Hyperlipidemia, unspecified; E78.00 Pure hypercholesterolemia, unspecified; Z79.01 Long term (current) use of anticoagulants; Z79.899 Other long term (current) drug therapy; Z87.891 Personal history of nicotine dependence ==